=== PATIENT | female | born 1950 | race Caucasian/White ===

== ENCOUNTER 2018-06-28 14:12 | Outpatient (CLI) | payer OTHER ==
--- NOTE | 2018-06-30 12:03 | MRI Report ---
Reason: BURSITIS OF LEFT SHOULDER Procedure Date: 06/28/2018 Accession Number: [id number] / [id number] Procedure: MRI - Shoulder LT W/O CPT Code: FULL RESULT: EXAM: LEFT SHOULDER MRI WITHOUT CONTRAST EXAM DATE: 06/28/2018 02:40 PM. CLINICAL HISTORY: Chronic left shoulder pain. Previous fall one year ago. Bursitis. COMPARISON: None. TECHNIQUE: Multiplanar, multisequence T1-weighted and fluid-sensitive sequences of the shoulder without contrast. Other: None. FINDINGS: Acromioclavicular Region: The acromion is type II. The acromioclavicular joint is unremarkable. The coracoacromial and coracoclavicular ligaments are intact. No subacromial/subdeltoid bursal fluid. Glenohumeral Region: No subluxation. Small joint effusion. No loose bodies. 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 Grade 3-4 chondromalacia at the inferior aspect of the glenoid. The glenohumeral ligaments and joint capsule are unremarkable. Bone Marrow: Small subcortical cyst at the anterior superior aspect of the humeral head. Small subcortical cysts at the inferior aspect of the glenoid. No acute fracture or bone lesions. Small osteophytes at the inferior margin of the humeral head and posterior aspect of the glenoid. Labrum: There is a linear T2 hyperintense focus at the posterior superior and inferior aspects of the labrum, suspicious for tears. Musculature/Rotator Cuff: The subscapularis, supraspinatus, infraspinatus, and teres minor tendons are intact. No edema or fatty atrophy. Biceps Tendon: The long head of the biceps tendon and biceps jenna are intact. Other: The subcutaneous tissues are unremarkable. IMPRESSION: 1. Findings suspicious for tears at the posterior superior and inferior aspects of the labrum. If further evaluation of the labrum is desired, a follow-up MR arthrogram exam may be helpful. 2. No rotator cuff tear. 3. Moderate glenohumeral joint osteoarthritis. 4. Small glenohumeral joint effusion. RADIA MUSCULOSKELETAL RADIOLOGY SECTION
== END 2018-06-28 14:13 | disposition home or self-care (01) ==
LOC: DI 14:12
PROVIDERS: ATTEND Orthopaedic Surgery Sports Medicine
DX: M19.012 Primary osteoarthritis, left shoulder (principal); M25.412 Effusion, left shoulder